=== PATIENT | male | born 1935 | race Caucasian/White ===

== ENCOUNTER → 2017-05-27 | Outpatient (CLI) | payer MEDICARE ==
[~2017-05-27] MED LIST: ALBIPROI INH; ALBU90OI61 INH; ASPI500 PO; ASPI81EC PO; ATOR20 PO; BETA.05TC TP; BUDE10.22 IH; CHOL10002 PO; HYDACE5 PO; LEVFLO500 PO; OMEP20ER PO; PHENA200 PO; TIOT18 IH
== END | disposition home or self-care (01) ==
LOC: LAB SHORT 07:23 → PLD 07:23
DX: C44.311 Basal cell carcinoma of skin of nose (principal)
CPT/HCPCS: 88305